=== PATIENT | female | born 1950 | race Caucasian/White ===

== ENCOUNTER 2017-01-29 17:43 | Inpatient (IN) | payer OTHER ==
[~2017-01-29] VITALS: Ht 154.9 cm; Wt 58.1 kg
[~2017-01-29 17:43] MED LIST: CLOPIDOGREL75 M1 PO; ELA10 PO; OMEPRAZOLE DR20 M1 PO; REG5 PO; VASOTEC20 MG PO
[2017-01-29 19:24] LABS: BASOPHIL % 0.6 % (0-2); PLATELET COUNT 286 x10^3mcL (130-400); RED CELL DISTRIBUTION WIDTH 14.5 % (11.5-14.5)
[2017-01-29 19:36] LABS: CALCIUM 9.3 mg/dL (8.5-10.1); CARBON DIOXIDE 30.8 mmol/L (21-32)
[2017-01-29 19:41] LABS: ALBUMIN 4.2 g/dL (3.4-5.0); BILIRUBIN TOTAL 0.3 mg/dL (0.20-1.00); TOTAL PROTEIN, SERUM 8.2 g/dL (6.4-8.2)
[2017-01-29] MEDS ORDERED: ENALAPRIL MALE2.5 MG (20:38)
[2017-01-29] MEDS ORDERED: GOOD SENSE OMEP20 MG PO (20:38)
[2017-01-29] MEDS ORDERED: LOSARTAN POTASS25 M1 (20:38)
[2017-01-29] MEDS ORDERED: CARVEDILOL12.5 M1 PO (20:38)
[2017-01-29] MEDS ORDERED: NITROGLYCERIN0.4 MG PO (20:39)
[2017-01-29] MEDS ORDERED: LIPITOR80 MG PO (20:39)
[2017-01-29] MEDS ORDERED: FENOFIBRATE48 M1 PO (20:39)
[2017-01-29] MEDS ORDERED: CLOPIDOGREL75 M1 (20:39)
[2017-01-29] MEDS ORDERED: ASPIR 8181 MG PO (20:39)
[2017-01-29 21:19] VITALS: BP 154/74
[2017-01-29 21:52] LABS: PHOSPHOROUS 3.5 mg/dL (2.5-4.9)
[2017-01-29 22:02] LABS: FREE T4 0.98 ng/dL (0.76-1.46); FREE THYROXINE INDEX 3.3 ug/dL (1.4-4.5); T4(THYROXINE) 8.6 ug/dL (4.7-13.3)
[2017-01-29 22:03] LABS: T3 TOTAL 0.96 ng/mL
[2017-01-30] MEDS ORDERED: HYDROCHLOROTHIA25 MG PO (01:08)
[2017-01-30 05:47] LABS: BASOPHIL % 0.8 % (0-2); PLATELET COUNT 233 x10^3mcL (130-400); RED CELL DISTRIBUTION WIDTH 13.9 % (11.5-14.5)
[2017-01-30 05:57] LABS: CALCIUM 8.8 mg/dL (8.5-10.1); CARBON DIOXIDE 31.2 mmol/L (21-32); POTASSIUM SERUM 4.1 mmol/L (3.5-5.1)
[2017-01-30 06:49] VITALS: BP 103/55
[2017-01-30 10:01] VITALS: BP 120/64
[2017-01-30 10:57] LABS: microscopic required? YES; urine erythrocyte TRACE (NEGATIVE)
[2017-01-30 11:28] LABS: AMPHETAMINE QUAL UR NONE DETECTED (NEG <=1000)
[2017-01-30 13:43] VITALS: BP 116/68
[2017-01-30 18:16] VITALS: BP 127/68
[2017-01-30 21:27] VITALS: BP 118/70
[2017-01-31 06:10] LABS: BASOPHIL % 0.6 % (0-2); PLATELET COUNT 253 x10^3mcL (130-400); RED CELL DISTRIBUTION WIDTH 13.7 % (11.5-14.5)
[2017-01-31 06:18] VITALS: BP 119/58
[2017-01-31 06:20] LABS: CALCIUM 8.9 mg/dL (8.5-10.1); CHLORIDE SERUM 103 mmol/L (98-107); CREATININE SERUM 0.9 mg/dL (0.6-1.0); GFR1 > 60 mL/min; GLUCOSE SERUM 96 mg/dL (74-106); POTASSIUM SERUM 4.2 mmol/L (3.5-5.1); SODIUM SERUM 138 mmol/L (136-145)
[2017-01-31 09:00] VITALS: BP 137/75
[2017-01-31 12:20] VITALS: BP 142/69
[2017-01-31 16:43] VITALS: BP 121/78
[2017-01-31 20:45] VITALS: BP 114/58
[2017-02-01 06:16] VITALS: BP 122/61
[2017-02-01 07:12] LABS: BASOPHIL % 0.7 % (0-2); PLATELET COUNT 228 x10^3mcL (130-400); RED CELL DISTRIBUTION WIDTH 13.3 % (11.5-14.5)
[2017-02-01 07:29] LABS: CALCIUM 8.3 mg/dL (8.5-10.1); CARBON DIOXIDE 27.7 mmol/L (21-32); CHLORIDE SERUM 104 mmol/L (98-107); CREATININE SERUM 0.9 mg/dL (0.6-1.0); GFR1 > 60 mL/min; GLUCOSE SERUM 87 mg/dL (74-106); POTASSIUM SERUM 3.8 mmol/L (3.5-5.1); SODIUM SERUM 136 mmol/L (136-145)
[2017-02-01 09:09] VITALS: BP 109/65
[2017-02-01] MEDS ORDERED: LOSARTAN POTASS1 TA6 PO (10:31)
[2017-02-01] MEDS ORDERED: METOCLOPRAMIDE H5 M1 PO (10:36)
[2017-02-01] MEDS ORDERED: STOOL SOFTENER100 MG PO (10:37)
[2017-02-01] MEDS ORDERED: NORCO1 TA2 PO (10:37)
[2017-02-01] MEDS ORDERED: TAMSULOSIN HYD0.4 M1 PO (10:41)
[2017-02-01 11:54] VITALS: BP 109/65
== END 2017-02-01 12:28 | disposition home or self-care (01) | DRG 391 ==
LOC: ED 17:43 → DU 20:29 → MU 02-01 08:08
PROVIDERS: Emergency Medicine; Internal Medicine Gastroenterology; ADMIT Family Medicine
PROC: 0DB78ZX Excision of Stomach, Pylorus, Via Natural or Artificial Opening Endoscopic, Diagnostic (ICD-10-PCS; principal; 2017-01-30 12:30)
DX: K21.9 Gastro-esophageal reflux disease without esophagitis (principal); N17.0 Acute kidney failure with tubular necrosis; I25.10 Atherosclerotic heart disease of native coronary artery without angina pectoris; K09.9 Cyst of oral region, unspecified; N20.0 Calculus of kidney; D64.9 Anemia, unspecified; R22.0 Localized swelling, mass and lump, head; I10 Essential (primary) hypertension; E78.5 Hyperlipidemia, unspecified; I25.2 Old myocardial infarction; Z79.82 Long term (current) use of aspirin; Z68.24 Body mass index [BMI] 24.0-24.9, adult; F17.210 Nicotine dependence, cigarettes, uncomplicated; Z95.5 Presence of coronary angioplasty implant and graft
CPT/HCPCS: 43235; 82962; 83880; 84439; 90658; 99406; J0696; J1200; J1610; J1885; J2250; J2270; J2310; J2405; J2765; J3010; J3490; J7030; J7613; Q0092; Q0169; Q9966; Q9967